=== PATIENT | female | born 1995 | race Two or more races ===

== ENCOUNTER 2017-11-25 12:36 | Inpatient (IN) | payer OTHER ==
[~2017-11-25] VITALS: Ht 160 cm; Wt 62.3 kg
[2017-11-25] MEDS ORDERED: OXYTOCIN 30U/ 0.9% NaCL 500ML 500 ML IV ONE (13:09)
[2017-11-25] MEDS ORDERED: AMPICILLIN 2 GM in SODIUM CHLORIDE 0.9% 100 ML IVPB STA (13:09)
[2017-11-25] MEDS: PLEASE ENTER HEIGHT AND WEIGHT MC SCH ×7 (13:30→19:30)
[2017-11-25] MEDS ORDERED: FENTANYL PF 100 MCG/2ML IV PRN (13:30)
[2017-11-25] MEDS ORDERED: ONDANSETRON 2MG/ML, 2ML IVPush PRN (13:30)
[2017-11-25 13:50] VITALS: BP 111/72
[2017-11-25 13:51] LABS: BASOPHILS # (AUTO) 0.02 x10^3/uL (0-0.1); BASOPHILS % (AUTO) 0 % (0-1); EOSINOPHILS # (AUTO) 0.01 x10^3/uL (0-0.4); EOSINOPHILS % (AUTO) 0 % (1-7); LYMPHOCYTES # (AUTO) 1.19 x10^3/uL (1-3.4); LYMPHOCYTES % (AUTO) 17 % (22-44); MD NO; MEAN CORPUSCULAR HGB CONC 34.1 g/dL (32.4-35.8); MEAN CORPUSCULAR VOLUME 90.8 fL (80-100); MEAN PLATELET VOLUME 8.9 fL (7.4-10.4); MONOCYTES # (AUTO) 0.49 x10^3/uL (0.2-0.8); MONOCYTES % (AUTO) 7 % (2-9); NEUTROPHILS # (AUTO) 5.27 x10^3/uL (1.8-6.8); NEUTROPHILS % (AUTO) 76 % (42-75); PLATELET COUNT 224 x10^3/uL (130-400); RED BLOOD COUNT 3.84 x10^6/uL (3.82-5.3); RED CELL DISTRIBUTION WIDTH 13.2 % (9.6-15.2)
[2017-11-25] MEDS: LACTATED RINGERS 1,000 ML IV SCH ×2 (14:12→20:25)
[2017-11-25] MEDS ORDERED: NEWBORN KIT ONE (14:22)
[2017-11-25] MEDS ORDERED: OXYTOCIN 30U/ 0.9% NaCL 500ML 500 ML ONE (17:10)
[2017-11-25] MEDS: AMPICILLIN 1 GM in SODIUM CHLORIDE 0.9% 100 ML IVPB SCH ×2 (18:07→21:41)
[2017-11-25] MEDS ORDERED: OXYTOCIN 30U/ 0.9% NaCL 500ML 500 ML IV PRN (19:00)
[2017-11-25] MEDS ORDERED: FENTANYL/BUPIV./NS/PF 250 ML EPIDCONT SCH (19:33)
[2017-11-25] MEDS ORDERED: LACTATED RINGERS 1,000 ML IVBOLUS PRN (20:00)
[2017-11-25] MEDS ORDERED: FENTANYL PF 500 MCG, BUPIVACAINE/PF 0.5%, 30ML 62.5 ML in SODIUM CHLORIDE 0.9% 177.5 ML EPIDCONT SCH (20:00)
[2017-11-25 20:45] VITALS: BP 126/88
[2017-11-25] MEDS ORDERED: FENTANYL PF 100 MCG/2ML ONE ×2 (22:22→23:25)
[2017-11-25] MEDS: FENTANYL PF 100 MCG/2ML IVPush PRN ×2 (22:24→23:28)
[2017-11-25] MEDS ORDERED: BUPIVACAINE 0.25% ONE (23:43)
[2017-11-26] MEDS: AMPICILLIN 1 GM in SODIUM CHLORIDE 0.9% 100 ML IVPB SCH ×2 (02:58→06:00)
[2017-11-26] MEDS: LACTATED RINGERS 1,000 ML IV SCH ×3 (02:59→05:57)
[2017-11-26] MEDS ORDERED: MISOPROSTOL 200 MCG TABLET PR PRN (05:30)
[2017-11-26] MEDS ORDERED: OXYTOCIN 30U/ 0.9% NaCL 500ML 500 ML ONE (05:30)
[2017-11-26] MEDS: OXYTOCIN 30U/ 0.9% NaCL 500ML 500 ML IV SCH ×2 (05:57→15:24)
[2017-11-26] MEDS ORDERED: IBUPROFEN 600 MG TABLET ONE (06:43)
[2017-11-26] MEDS ORDERED: OXYcodone/APAP 5/325MG TABLET ONE (06:44)
[2017-11-26] MEDS: IBUPROFEN 600 MG TABLET PO PRN ×3 (06:46→23:58)
[2017-11-26] MEDS: OXYcodone/APAP 5/325MG TABLET PO PRN ×3 (06:46→23:58)
[2017-11-26 08:15] VITALS: BP 125/88
[2017-11-26] MEDS: PRENATAL VIT/IRON/FA 1 EACH TABLET PO SCH (11:21)
[2017-11-26] MEDS: DOCUSATE 100 MG CAPSULE PO PRN ×2 (11:21→19:37)
[2017-11-26] MEDS ORDERED: DIPH,PERTUSS(ACELL),TET VAC/PF NC IM-VACC ONE ×2 (11:34→12:00)
[2017-11-26 12:00] VITALS: BP 118/65
[2017-11-26 13:09] LABS: BASOPHILS # (AUTO) 0.01 x10^3/uL (0-0.1); BASOPHILS % (AUTO) 0 % (0-1); EOSINOPHILS % (AUTO) 0 % (1-7); LYMPHOCYTES # (AUTO) 1.14 x10^3/uL (1-3.4); LYMPHOCYTES % (AUTO) 9 % (22-44); MD NO; MEAN CORPUSCULAR HEMOGLOBIN 31.3 pg (27.0-34.8); MEAN CORPUSCULAR VOLUME 92.1 fL (80-100); MEAN PLATELET VOLUME 8.6 fL (7.4-10.4); MONOCYTES # (AUTO) 0.56 x10^3/uL (0.2-0.8); MONOCYTES % (AUTO) 4 % (2-9); NEUTROPHILS % (AUTO) 87 % (42-75); PLATELET COUNT 191 x10^3/uL (130-400); RED BLOOD COUNT 3.47 x10^6/uL (3.82-5.3); RED CELL DISTRIBUTION WIDTH 13.3 % (9.6-15.2)
[2017-11-26 16:00] VITALS: BP 122/68
[2017-11-26 19:45] VITALS: BP 120/89
[2017-11-27] VITALS: BP 107/73
[2017-11-27] MEDS: OXYTOCIN 30U/ 0.9% NaCL 500ML 500 ML IV SCH ×3 (01:24→21:24)
[2017-11-27 04:00] VITALS: BP 112/64
[2017-11-27 07:35] VITALS: BP 125/87
[2017-11-27] MEDS: OXYcodone/APAP 5/325MG TABLET PO PRN ×3 (07:40→20:42)
[2017-11-27] MEDS: DOCUSATE 100 MG CAPSULE PO PRN (07:40)
[2017-11-27] MEDS: IBUPROFEN 600 MG TABLET PO PRN ×3 (07:40→20:42)
[2017-11-27] MEDS: PRENATAL VIT/IRON/FA 1 EACH TABLET PO SCH (07:40)
[2017-11-27 20:25] VITALS: BP 128/81
[2017-11-28] VITALS: BP 122/80
[2017-11-28 04:00] VITALS: BP 117/81
[2017-11-28] MEDS: OXYcodone/APAP 5/325MG TABLET PO PRN (05:39)
[2017-11-28] MEDS: IBUPROFEN 600 MG TABLET PO PRN (05:39)
[2017-11-28] MEDS: OXYTOCIN 30U/ 0.9% NaCL 500ML 500 ML IV SCH (07:24)
[2017-11-28 07:25] VITALS: BP 121/80
[2017-11-28] MEDS: PRENATAL VIT/IRON/FA 1 EACH TABLET PO SCH (08:52)
[2017-11-28] MEDS: DOCUSATE 100 MG CAPSULE PO PRN (08:52)
[2017-11-28] MEDS ORDERED: IBUP-1222 PO (11:58)
== END 2017-11-28 14:46 | disposition home or self-care (01) | DRG 775 ==
LOC: LDOP 12:36 → LDIP 13:09 → 2NW 11-26 08:18
PROVIDERS: ADMIT Obstetrics & Gynecology; ATTEND Obstetrics & Gynecology
PROC: 0HQ9XZZ Repair Perineum Skin, External Approach (ICD-10-PCS; principal; 2017-11-26)
PROC: 10E0XZZ Delivery of Products of Conception, External Approach (ICD-10-PCS; 2017-11-26)
PROC: 3E0R3BZ Introduction of Anesthetic Agent into Spinal Canal, Percutaneous Approach (ICD-10-PCS; 2017-11-26)
PROC: 00HU33Z Insertion of Infusion Device into Spinal Canal, Percutaneous Approach (ICD-10-PCS; 2017-11-26)
DX: O99.824 Streptococcus B carrier state complicating childbirth (principal); O69.81X0 Labor and delivery complicated by cord around neck, without compression, not applicable or unspecified; O76 Abnormality in fetal heart rate and rhythm complicating labor and delivery; O70.0 First degree perineal laceration during delivery; Z37.0 Single live birth; Z3A.39 39 weeks gestation of pregnancy
CPT/HCPCS: 36415; 85025; 86850; 86900; 90715; J0290; J3010; J3490; J2590; J7050; J7120

== ENCOUNTER 2020-01-30 12:35 | Inpatient (IN) | payer OTHER ==
[~2020-01-30] VITALS: Ht 160 cm; Wt 69.1 kg
[~2020-01-30 12:35] MED LIST: IBUP-1222 PO
[2020-01-31] MEDS ORDERED: OXYTOCIN 30U/ 0.9% NaCL 500ML 500 ML IV PRN (08:53)
[2020-01-31] MEDS ORDERED: OXYTOCIN 30U/ 0.9% NaCL 500ML 500 ML IV ONE (08:53)
[2020-01-31] MEDS ORDERED: D5%-LACTATED RINGERS 1,000 ML IV SCH (08:53)
[2020-01-31] MEDS ORDERED: PENICILLIN GK 5,000,000 UNITS in DEXTROSE 5% 100 ML IVPB ONE (09:00)
[2020-01-31] MEDS ORDERED: TERBUTALINE 1 MG/ML, 1ML IVPush PRN (09:00)
[2020-01-31] MEDS ORDERED: FENTANYL PF 100 MCG/2ML IVPush PRN (09:00)
[2020-01-31] MEDS ORDERED: TERBUTALINE 1 MG/ML, 1ML SQ PRN (09:00)
[2020-01-31] MEDS ORDERED: ONDANSETRON 2MG/ML, 2ML IVPush PRN ×2 (09:00→21:30)
[2020-01-31] MEDS ORDERED: CALCIUM CARBONATE 500 MG TAB.CHEW PO PRN (09:00)
[2020-01-31] MEDS ORDERED: MISOPROSTOL 25 MCG TABLET VG PRN (09:00)
[2020-01-31 09:36] LABS: BASOPHILS % (AUTO) 0 % (0-1); EOSINOPHILS % (AUTO) 0 % (1-7); LYMPHOCYTES % (AUTO) 22 % (22-44); MEAN CORPUSCULAR HEMOGLOBIN 28.7 pg (27.0-34.8); MEAN CORPUSCULAR HGB CONC 33.1 g/dL (32.4-35.8); MEAN PLATELET VOLUME 9.1 fL (7.4-10.4); MONOCYTES % (AUTO) 7 % (2-9); NEUTROPHILS % (AUTO) 71 % (42-75); PLATELET COUNT 206 x10^3/uL (130-400); RED BLOOD COUNT 3.96 x10^6/uL (3.82-5.3); RED CELL DISTRIBUTION WIDTH 13.8 % (9.6-15.2)
[2020-01-31 09:38] LABS: MD NO
[2020-01-31] MEDS ORDERED: MISOPROSTOL 25 MCG TABLET ONE (09:40)
[2020-01-31] MEDS ORDERED: PLEASE ENTER ALLERGIES MC SCH (10:00)
[2020-01-31] MEDS ORDERED: PLEASE ENTER HEIGHT AND WEIGHT MC SCH (10:01)
[2020-01-31 10:31] VITALS: BP 121/83
[2020-01-31] MEDS ORDERED: PREN1TAB60 PO (10:43)
[2020-01-31] MEDS ORDERED: NEWBORN KIT ONE (10:50)
[2020-01-31] MEDS: LACTATED RINGERS 1,000 ML IV SCH ×2 (11:18→19:41)
[2020-01-31] MEDS: PENICILLIN GK 2,500,000 UNITS in DEXTROSE 5% 100 ML IVPB SCH ×3 (13:32→21:27)
[2020-01-31] MEDS ORDERED: OXYTOCIN 30U/ 0.9% NaCL 500ML 500 ML ONE (14:56)
[2020-01-31] MEDS ORDERED: LIDOCAINE 1%, 20ML ONE (18:48)
[2020-01-31] MEDS ORDERED: MISOPROSTOL 200 MCG TABLET ONE (18:48)
[2020-01-31] MEDS ORDERED: BUPIVACAINE 0.25% ONE (19:55)
[2020-01-31] MEDS ORDERED: FENTANYL/BUPIV./NS/PF 250 ML EPIDCONT ONE (19:55)
[2020-01-31] MEDS ORDERED: FENTANYL PF 100 MCG/2ML ONE (19:55)
[2020-01-31] MEDS ORDERED: LACTATED RINGERS 1,000 ML IV SCH (21:11)
[2020-01-31] MEDS ORDERED: FENTANYL/BUPIV./NS/PF 250 ML EPIDCONT SCH (21:11)
[2020-01-31] MEDS ORDERED: LACTATED RINGERS 1,000 ML IVBOLUS PRN (21:30)
[2020-01-31] MEDS ORDERED: PHARMACY INSTRUCTION MC PRN (21:30)
[2020-01-31] MEDS ORDERED: EPHEDRINE 50 MG/ML, 1ML IVPush PRN (21:30)
[2020-02-01] MEDS: LACTATED RINGERS 1,000 ML IV SCH (00:35)
[2020-02-01] MEDS: PENICILLIN GK 2,500,000 UNITS in DEXTROSE 5% 100 ML IVPB SCH (01:49)
[2020-02-01] MEDS ORDERED: ONDANSETRON 2MG/ML, 2ML ONE (03:54)
[2020-02-01] MEDS ORDERED: IBUPROFEN 600 MG TABLET ONE (05:58)
[2020-02-01] MEDS ORDERED: SIMETHICONE 80 MG CHEW TAB PO PRN (06:30)
[2020-02-01] MEDS ORDERED: ACETAMINOPHEN 325 MG TABLET PO PRN (06:30)
[2020-02-01] MEDS ORDERED: HYDROcodone/APAP 5/325 TABLET PO PRN (06:30)
[2020-02-01] MEDS ORDERED: OXYTOCIN 30U/ 0.9% NaCL 500ML 500 ML ONE (07:04)
[2020-02-01] MEDS: OXYTOCIN 30U/ 0.9% NaCL 500ML 500 ML IV SCH ×2 (07:07→15:05)
[2020-02-01] MEDS: PRENATAL VIT/IRON/FA 1 EACH TABLET PO SCH (07:30)
[2020-02-01 07:42] VITALS: BP 120/81
[2020-02-01 12:57] LABS: BASOPHILS % (AUTO) 0 % (0-1); EOSINOPHILS % (AUTO) 0 % (1-7); LYMPHOCYTES % (AUTO) 8 % (22-44); MEAN CORPUSCULAR HEMOGLOBIN 28.9 pg (27.0-34.8); MEAN PLATELET VOLUME 9.2 fL (7.4-10.4); MONOCYTES % (AUTO) 5 % (2-9); NEUTROPHILS % (AUTO) 86 % (42-75); PLATELET COUNT 209 x10^3/uL (130-400); RED BLOOD COUNT 3.59 x10^6/uL (3.82-5.3); RED CELL DISTRIBUTION WIDTH 13.7 % (9.6-15.2)
[2020-02-01 13:00] LABS: MD NO
[2020-02-01 13:28] VITALS: BP 118/82
[2020-02-01] MEDS: IBUPROFEN 600 MG TABLET PO PRN ×2 (15:05→21:09)
[2020-02-01 16:39] VITALS: BP 124/83
[2020-02-01 20:00] VITALS: BP 127/87
[2020-02-01] MEDS: DOCUSATE 100 MG CAPSULE PO PRN (21:09)
[2020-02-02 00:11] VITALS: BP 133/88
[2020-02-02] MEDS: IBUPROFEN 600 MG TABLET PO PRN (03:10)
[2020-02-02 03:15] VITALS: BP 143/98
[2020-02-02 03:45] VITALS: BP 136/90
[2020-02-02 07:50] VITALS: BP 127/87
[2020-02-02] MEDS: DOCUSATE 100 MG CAPSULE PO PRN (12:01)
[2020-02-02] MEDS: PRENATAL VIT/IRON/FA 1 EACH TABLET PO SCH (12:01)
[2020-02-02 12:10] VITALS: BP 125/86
[2020-02-02 16:30] VITALS: BP 146/96
== END 2020-02-02 19:39 | disposition home or self-care (01) | DRG 807 ==
LOC: LDIP 01-31 08:19 → 2NW 02-01 07:30
PROVIDERS: ADMIT Obstetrics & Gynecology; ATTEND Obstetrics & Gynecology
PROC: 10907ZC Drainage of Amniotic Fluid, Therapeutic from Products of Conception, Via Natural or Artificial Opening (ICD-10-PCS; principal; 2020-02-01)
PROC: 10E0XZZ Delivery of Products of Conception, External Approach (ICD-10-PCS; 2020-02-01)
PROC: 3E033VJ Introduction of Other Hormone into Peripheral Vein, Percutaneous Approach (ICD-10-PCS; 2020-02-01)
PROC: 0HQ9XZZ Repair Perineum Skin, External Approach (ICD-10-PCS; 2020-02-01)
PROC: 3E0R3BZ Introduction of Anesthetic Agent into Spinal Canal, Percutaneous Approach (ICD-10-PCS; 2020-02-01)
PROC: 00HU33Z Insertion of Infusion Device into Spinal Canal, Percutaneous Approach (ICD-10-PCS; 2020-02-01)
DX: O69.81X0 Labor and delivery complicated by cord around neck, without compression, not applicable or unspecified (principal); Z37.0 Single live birth; Z20.828 Contact with and (suspected) exposure to other viral communicable diseases; Z3A.40 40 weeks gestation of pregnancy; O70.0 First degree perineal laceration during delivery
CPT/HCPCS: 36415; 85025; 86592; 86850; 86900; 87635; G0378; J2405; J2540; J3490; J2590; J3010; J7120

== ENCOUNTER 2020-02-10 17:27 | Emergency (ER) | payer OTHER ==
[~2020-02-10] VITALS: Ht 160 cm; Wt 62.6 kg
[~2020-02-10 17:27] MED LIST changes: +PREN1TAB60 PO
--- NOTE | 2020-02-10 18:01 | NUR ---
pt reports coming into ed today due to passing a clot the size of two golf balls after urinating today. Having lower back and vaginal pain at this time. pt had vaginal 9 days ago without complications, denies being preeclamptic, HTN, or lower extremity swelling. This is her second child. Pt denies any light headed or dizziness, pulses 2+, gross neuro intact. wctm. waiting for labs and us pt placed on spo2/bp/ecg monitoring. at [facility] at [facility] for eval and poc. Urine collected and walked to lab
[2020-02-10 18:09] LABS: BASOPHILS % (AUTO) 1 % (0-1); EOSINOPHILS % (AUTO) 1 % (1-7); LYMPHOCYTES % (AUTO) 26 % (22-44); MEAN CORPUSCULAR HEMOGLOBIN 28.4 pg (27.0-34.8); MEAN PLATELET VOLUME 7.7 fL (7.4-10.4); MONOCYTES % (AUTO) 6 % (2-9); NEUTROPHILS % (AUTO) 67 % (42-75); PLATELET COUNT 400 x10^3/uL (130-400); RED BLOOD COUNT 4.29 x10^6/uL (3.82-5.3)
[2020-02-10 18:16] LABS: INTERNATIONAL NORMALIZED RATIO 0.92 (0.93-1.1); PROTHROMBIN TIME 9.5 Seconds (9.6-11.5)
[2020-02-10 18:17] LABS: ALANINE AMINOTRANSFERASE 35 U/L (12-78); ALBUMIN 3.3 g/dL (3.4-5.0); ANION GAP 5 mmol/L (5-15); CALCIUM 8.7 mg/dL (8.5-10.1); CHLORIDE 109 mmol/L (98-107)
[2020-02-10 18:19] LABS: ALKALINE PHOSPHATASE 158 U/L (45-117); BILIRUBIN,TOTAL 0.3 mg/dL (0.2-1.0); CREATININE 0.55 mg/dL (0.55-1.02); TOTAL PROTEIN 7.3 g/dL (6.4-8.2)
[2020-02-10 18:20] LABS: MD NO
--- NOTE | 2020-02-10 18:23 | NUR ---
pt to [facility] via [facility], no change in condition, NAD, provided pads for comfort, WCTM.
[2020-02-10 18:26] LABS: MICROSCOPIC AUTO
--- NOTE | 2020-02-10 19:05 | NUR ---
BEDSIDE REPORT FROM [facility] PT RESTING NO NEEDS AT THIS TIME.
--- NOTE | 2020-02-10 19:30 | NUR ---
ALL RESULTS BACK CHART UP FOR RECHECK AT THIS TIME
[2020-02-10 20:06] VITALS: BP 114/77
== END 2020-02-10 20:21 | disposition home or self-care (01) ==
LOC: ED 18:42
DX: O72.2 Delayed and secondary postpartum hemorrhage (principal); M54.5 Low back pain; Z90.49 Acquired absence of other specified parts of digestive tract
CPT/HCPCS: 36415; 76830; 80053; 81001; 84550; 85025; 85610; 85730; 87086; 99284